=== PATIENT | male | born 1960 | race Hispanic/Latino ===

== ENCOUNTER 2024-01-10 15:08 | Emergency (ER) | payer SELFPAY ==
[~2024-01-10] VITALS: Ht 165.1 cm; Wt 63.6 kg
[2024-01-10] MEDS ORDERED: AMLODIPINE BESYL5 MG PO (15:23)
[2024-01-10 15:27] VITALS: BP 159/89
== END 2024-01-10 15:30 | disposition home or self-care (01) | DRG 950 ==
LOC: EDBD 15:08 → ED 15:08
DX: S01.01XD Laceration without foreign body of scalp, subsequent encounter (principal); X58.XXXD Exposure to other specified factors, subsequent encounter